=== PATIENT | female | born 1945 | race Asian ===

== ENCOUNTER 2017-02-12 11:31 | Emergency (ER) | payer OTHER, MEDICARE ==
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
[2017-02-12 11:51] VITALS: O2SAT 92
--- NOTE | 2017-02-12 11:55 | CPEKG ---
Heart Rate: 87 RR Interval: 690 P-R Interval: 184 QRSD Interval: 72 QT Interval: 364 QTC Interval: 438 P Linwood: 48 QRS Linwood: -5 T Wave Linwood: -19 EKG Severity - ABNORMAL ECG - EKG Impression: SINUS RHYTHM EKG Impression: NONSPECIFIC T ABNORMALITIES, DIFFUSE LEADS Electronically Signed By: Db Mancini 12-Feb-2017 12:44:14
[2017-02-12 14:27] VITALS: BP 117/68; PULSE 88; RESP 18; TEMP 98.4
== END 2017-02-12 14:28 | disposition home or self-care (01) ==
LOC: EDUNIT#
DX: S16.1XXA Strain of muscle, fascia and tendon at neck level, initial encounter (principal); J11.1 Influenza due to unidentified influenza virus with other respiratory manifestations; I10 Essential (primary) hypertension; V48.0XXA Car driver injured in noncollision transport accident in nontraffic accident, initial encounter; Y92.410 Unspecified street and highway as the place of occurrence of the external cause; Y99.8 Other external cause status; Y93.89 Activity, other specified
CPT/HCPCS: G0390

== ENCOUNTER 2017-02-12 15:34 | Observation (INO) | payer OTHER, MEDICARE ==
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
[2017-02-12 16:22] LABS: PLATELET COUNT 151 10^3/uL (150-400)
[2017-02-12] MEDS ORDERED: ACETAMINOPHEN 325 MG TAB PO PRN (17:44)
[2017-02-12] MEDS ORDERED: ONDANSETRON 4 MG/2 ML VIAL IVP PRN (17:44)
[2017-02-12] MEDS ORDERED: NALOXONE HCL 0.4 MG/ML INJ IVP PRN (17:44)
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
[2017-02-12] MEDS ORDERED: OSELTAMIVIR PHOSPHATE 75 MG CAP PO SCH (18:45)
--- NOTE | 2017-02-12 18:50 | CPEKG ---
Heart Rate: 79 RR Interval: 759 P-R Interval: 168 QRSD Interval: 74 QT Interval: 384 QTC Interval: 441 P Wilmer: 74 QRS Wilmer: 28 T Wave Wilmer: -44 EKG Severity - ABNORMAL ECG - EKG Impression: SINUS RHYTHM EKG Impression: NONSPECIFIC T ABNORMALITIES, DIFFUSE LEADS Electronically Signed By: Mitchell Beltran 12-Feb-2017 22:11:22
[2017-02-12] MEDS ORDERED: LR 1,000 ML IV SCH (19:00)
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
[2017-02-12] MEDS: OSELTAMIVIR 6 MG/ML UDSYR PO SCH (20:38)
--- NOTE | 2017-02-13 08:10 | SOAPPROG ---
SOAP Progress Note Assessment/Plan: Assessment: 71 yo F with small ICH after fall/near syncope Plan: neuro: stable and doing well overall no need for repeat head CT no need for keppra PT/OT/ST ok to discharge with cleared by Trauma/IM follow up with Dr Hilliard in 2-3 weeks, please call with neuro changes discussed with Dr Hilliard 02/13/17 08:06 Subjective: patient has mild headache, no N/V. Objective: Vital Signs Temp Pulse Resp BP Pulse Ox 36.7 C 57 L 15 116/55 L 97 02/13/17 08:00 02/13/17 08:00 02/13/17 08:00 02/13/17 08:00 02/13/17 08:00 02/12/17 02/13/17 02/14/17 05:59 05:59 05:59 Intake Total 350 Balance 350 AAOx4, +FC PERRL, EOMI, no facial droop MAYTE x 4 + light touch ICD10 Worksheet Patient Problems: Problems Problem Status Onset Facial abrasion Acute Intracranial bleed Acute Syncope Acute
[2017-02-13] MEDS: OSELTAMIVIR 6 MG/ML UDSYR PO SCH (08:16)
--- NOTE | 2017-02-13 09:12 | HOSPPROG ---
Hospitalist Progress Note Assessment/Plan: #ICH: no mass effect. No need for keppra. FU with NSGY in 2-3 weeks #Flu A; Tamiflu, renally-dose for 5 days #Presyncope: likely due to decreased PO intake, FLu. Denies CP or SOB. Chronic murmur, soft. Can do TTE outpatient #Disp: DC today Subjective: no dizziness or lightheadedness Objective: Vital Signs Temp Pulse Resp BP Pulse Ox 36.7 C 57 L 15 116/55 L 97 02/13/17 08:00 02/13/17 08:00 02/13/17 08:00 02/13/17 08:00 02/13/17 08:00 Microbiology 02/12/17 22:16 Respiratory Panel (PCR) - Final Nasal, Sinus - Swab Influenza Virus Type A H3 02/12/17 02/13/17 02/14/17 05:59 05:59 05:59 Intake Total 350 Balance 350 - Physical Exam Constitutional: no apparent distress Eyes: PERRL Ears, Nose, Mouth, Throat: other (abrasions over face. Lip laceration) Cardiovascular: regular rate and rhythym, systolic murmur (1/6 GEOVANNA) Respiratory: no respiratory distress, no rales or rhonchi Gastrointestinal: normoactive bowel sounds Genitourinary: no bladder fullness Skin: warm Musculoskeletal: full muscle strength ICD10 Worksheet Patient Problems: Problems Problem Status Onset Facial abrasion Acute Intracranial bleed Acute Syncope Acute
--- NOTE | 2017-02-13 09:54 | ASMTCASEMG ---
Living Arrangements What is your living Answers: With Spouse arrangement? Who do you live with? Type Of Residence What kind of residence do Answers: House you live in? Discharge Plan Comments Coordination Status Comments Notes: Pt is a 71 y/o female admitted for intracranial bleed and near syncope. Neurology has been consulted. Therapies have been ordered and awaiting recommendations. Needs are TBD at this time. CM to follow. Plan: TBD Date Signed: 02/13/2017 09:54 AM Electronically Signed By:NELLY Navarrete
[2017-02-13 12:04] VITALS: BP 135/73; PULSE 70; RESP 14; TEMP 97.9; O2SAT 94
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
--- NOTE | 2017-02-13 16:01 | ASDISCHSUM ---
Discharge Information Plan Status:Home with No Needs Medically Cleared to Leave:02/12/2017 Discharge Date:02/13/2017 02:52 PM CM D/C Disposition:Home, Routine, Self-Care ADT D/C Disposition:Home, Routine, Self-Care Projected Discharge Date:02/13/2017 12:00 AM Transportation at D/C: Discharge Delay Reason: Follow-Up Date:02/13/2017 12:00 AM Discharge Slot: Final Diagnosis: Placement Information Patient Contact Information Contact Name:LILA Relationship:Son Address:[address] City:[place] Alternate Phone: State/Zip Code:[place] [address] Email: Financial Information Financial Class:Commercial Primary Plan Desc:[employer] Primary Plan Number:[id number] Secondary Plan Desc:MEDICARE OUTPATIENT Secondary Plan Number:[id number] Assessment Information [facility] Initial CM Assessment Living Arrangements What is your living Answers: With Spouse arrangement? Who do you live with? Type Of Residence What kind of residence do Answers: House you live in? Discharge Plan Comments Coordination Status Comments Notes: Pt is a 71 y/o female admitted for intracranial bleed and near syncope. Neurology has been consulted. Therapies have been ordered and awaiting recommendations. Needs are TBD at this time. CM to follow. Plan: TBD Date Signed: 02/13/2017 09:54 AM Electronically Signed By:NELLY Navarrete Case Management Discharge Plan Note Case Management Discharge Discharge Order Complete? Answers: Yes Patient to Obtain Answers: Independently Medications Transportation Arranged Answers: Taxi - Voucher Transport will Pick (Date 02/13/2017 12:00 AM & Time) TOMMY Complete Answers: No Case Management Transport Answers: Yes Form Complete Faxed Final Orders Answers: No Agency/Facility Transfer Answers: No Report Printed & Faxed to Receiving Agency Family Notified Answers: No Discharge Comments Notes: Pt is being discharged today. Therapies are recommending home w/ 24hr supervision. CM met w/ pt for dispo planning. Pt reports that she is able to stay w/ her son. Pt is having [facility] beside delivery for meds. CM available for changes. Plan: Independent Date Signed: 02/13/2017 12:08 PM Electronically Signed By:NELLY Navarrete Intervention Information Intervention Type:*RONDON-Signed Date of Service:02/13/2017 10:19 AM Patient Type:Observation Staff Member:Summer Valle Hours: Discipline: Severity: Comment:
[2017-02-13] MEDS ORDERED: OSELTAMIVIR 6 MG/ML UDSYR PO SCH (21:00)
--- NOTE | 2017-02-16 19:35 | SOAPPROG ---
SOAP Progress Note Assessment/Plan: Assessment: 71-YEAR-OLD FEMALE WHO IS ADMITTED FOR AFTER A SYNCOPE AND FALL SUSTAINING A SMALL INTRAPARENCHYMAL HEAD TERTIARY EXAM IS DONE TODAY 02/13/2017. HEAD NECK EXAM REVEALS THE PUPILS TO BE NORMAL TMS ARE CLEAR, NECK IS SUPPLE NONTENDER, SHE HAS SOME ABRASIONS OVER HER LEFT AXILLA AND LEFT FOREHEAD BUT HER OCCLUSION IS NORMAL CHEST CLEAR AND SYMMETRIC WITHOUT TENDERNESS TO RIBS COR REGULAR RHYTHM ABDOMEN SOFT NONTENDER EXTREMITIES REVEAL FULL RANGE OF MOTION FULL PULSES NEURO EXAM IS SYMMETRIC AND PHYSIOLOGIC, CRANIAL NERVES ARE INTACT PSYCH REVEALS HER TO BE ORIENTED ALERT AND COOPERATIVE PRESENTLY SHE IS COMPLAINING OF NO REAL DIFFICULTIES AND HER EXAM IS NEGATIVE FOR ANY NEW INJURIES OR NEW FINDINGS Plan: SIGN OFF TO THE MEDICINE SERVICE FOR WORKUP OF HER SYNCOPAL EPISODES / NEURO SURGERY HAS CLEARED HER FOR THAT EVAL 02/16/17 19:35 Objective: Vital Signs Temp Pulse Resp BP Pulse Ox 36.6 C 70 14 135/73 H 94 02/13/17 12:00 02/13/17 12:00 02/13/17 12:00 02/13/17 12:00 02/13/17 12:00 ICD10 Worksheet Patient Problems: Problems Problem Status Onset Facial abrasion Acute Intracranial bleed Acute Syncope Acute
== END 2017-02-13 14:52 | disposition home or self-care (01) ==
LOC: F3N 19:38
PROVIDERS: ADMIT Surgery; ATTEND Internal Medicine
DX: S06.360A Traumatic hemorrhage of cerebrum, unspecified, without loss of consciousness, initial encounter (principal); R55 Syncope and collapse; J10.1 Influenza due to other identified influenza virus with other respiratory manifestations; S01.511A Laceration without foreign body of lip, initial encounter; S00.81XA Abrasion of other part of head, initial encounter; Y92.481 Parking lot as the place of occurrence of the external cause; V89.2XXA Person injured in unspecified motor-vehicle accident, traffic, initial encounter; R40.2413 Glasgow coma scale score 13-15, at hospital admission; R01.1 Cardiac murmur, unspecified; I10 Essential (primary) hypertension; E78.5 Hyperlipidemia, unspecified; M35.00 Sjogren syndrome, unspecified; E55.9 Vitamin D deficiency, unspecified; Z82.3 Family history of stroke; Z88.0 Allergy status to penicillin
CPT/HCPCS: 70450; 92523; 93005; 97161; 97165; 99285; G0378; G8978; G8979; G8980; G8987; G8988; G8989; G9165; G9166; G9167

== ENCOUNTER → 2017-03-14 | Outpatient (CLI) | payer OTHER, MEDICARE ==
[~2017-03-14] MED LIST: IOPAMIDOL (ISOVUE 370) 100 ML BTL IV ONE
== END ==
LOC: FIMAGING 13:42
PROVIDERS: ATTEND Physician Assistant
DX: I67.1 Cerebral aneurysm, nonruptured (principal); I65.21 Occlusion and stenosis of right carotid artery
CPT/HCPCS: Q9967